=== PATIENT | female | born 1965 | race Caucasian/White ===

== ENCOUNTER 2020-07-11 08:05 | Emergency (ER) | payer OTHER ==
[2020-07-11 09:47] LABS: HEMOGLOBIN 14.8 gm/dl (12.3-15.3); RED BLOOD COUNT 4.89 M/UL (4.00-5.10); WHITE BLOOD COUNT 3.8 K/UL (4.5-11.0)
[2020-07-11 10:27] LABS: BUN/CREATININE RATIO 16 (0-10)
[2020-07-11] MEDS ORDERED: VENTOLIN HFA 66.7 GM INH (12:28)
[2020-07-11] MEDS ORDERED: AZITHROMYCIN250 MG PO (12:28)
== END 2020-07-11 12:55 | disposition home or self-care (01) ==
LOC: ER1 08:05
PROVIDERS: Emergency Medicine
DX: U07.1 COVID-19 (principal); J12.82 Pneumonia due to coronavirus disease 2019
CPT/HCPCS: 71045; 80053; 82550; 82553; 83874; 84484; 85025; 85379; 96374; 99284; J2405; J2543; J7040; Q9967; U0002

== ENCOUNTER → 2020-08-04 | Outpatient (CLI) | payer OTHER ==
[~2020-08-04] MED LIST: AZITHROMYCIN250 MG PO; VENTOLIN HFA 66.7 GM INH
== END ==
LOC: RAD 11:50
DX: J18.9 Pneumonia, unspecified organism (principal)
CPT/HCPCS: 71046